=== PATIENT | male | born 1955 | race Caucasian/White ===

== ENCOUNTER 2017-11-12 09:37 | Emergency (ER) | payer OTHER ==
[~2017-11-12] VITALS: Ht 167.6 cm; Wt 86.2 kg
[~2017-11-12 09:37] MED LIST: AMLO10 PO; Bactrim Ds Tab1 EACH PO; CEPH500 PO; CLIN300 PO; CLON.5; CLON1 PO; Cleocin HCl300 MG PO; DIAZ5 PO; FURO20 PO; HYDACE5 PO; HYDCHL25 PO; HYDPAM50 PO; LISI20 PO; Lasix20 MG PO; Lotrimin Ultra12 GM EXT; METPRE4DP PO; NAPR500 PO; NITR.4SL SL; NITR100CA PO; Norco 10-325 T1 EACH PO; OXYACE5T PO; OXYC10TA19 PO; PHENY100ER; PHENY100ER PO; POTCHL20ER PO; Percocet 5-3251 EACH PO; Roxicodone15 MG PO; SPIR25 PO; Silvadene20 GM TOP; TRAM50 PO; WATER PILL
[2017-11-12] MEDS ORDERED: CEPH500 PO (10:03)
[2017-11-12] MEDS ORDERED: BUME2 PO (10:03)
[2017-11-12] MEDS ORDERED: Prinivil10 MG PO (10:09)
[2017-11-12] MEDS ORDERED: PHENY100ER PO (10:10)
== END 2017-11-12 10:53 | disposition home or self-care (01) ==
LOC: ER 09:37
DX: L03.116 Cellulitis of left lower limb (principal); R60.0 Localized edema; Z91.19 Patient's noncompliance with other medical treatment and regimen; Z88.0 Allergy status to penicillin; Z88.8 Allergy status to other drugs, medicaments and biological substances; Z79.899 Other long term (current) drug therapy; Z79.891 Long term (current) use of opiate analgesic; F17.200 Nicotine dependence, unspecified, uncomplicated
CPT/HCPCS: 99282

== ENCOUNTER 2018-08-20 10:44 | Day surgery (SDC) | payer OTHER ==
[~2018-08-20 10:44] MED LIST changes: +BUME2 PO; +Prinivil10 MG PO
== END 2018-08-20 22:39 | disposition home or self-care (01) ==
LOC: WOUND 10:44
DX: S81.802A Unspecified open wound, left lower leg, initial encounter (principal); I89.0 Lymphedema, not elsewhere classified; Z86.19 Personal history of other infectious and parasitic diseases
CPT/HCPCS: G0463

== ENCOUNTER 2018-10-28 16:29 | Emergency (ER) | payer OTHER ==
[~2018-10-28] VITALS: Ht 167.6 cm; Wt 93.0 kg
[2018-10-28] MEDS ORDERED: MINO50 PO (20:00)
[2018-10-28] MEDS ORDERED: Percocet 5-3251 EACH PO (20:00)
== END 2018-10-28 20:07 | disposition home or self-care (01) ==
LOC: ER 16:29
DX: S22.41XA Multiple fractures of ribs, right side, initial encounter for closed fracture (principal); S00.81XA Abrasion of other part of head, initial encounter; S80.812A Abrasion, left lower leg, initial encounter; I87.2 Venous insufficiency (chronic) (peripheral); I89.0 Lymphedema, not elsewhere classified; Y04.8XXA Assault by other bodily force, initial encounter; Z88.0 Allergy status to penicillin; Z88.8 Allergy status to other drugs, medicaments and biological substances; Z79.899 Other long term (current) drug therapy; G40.909 Epilepsy, unspecified, not intractable, without status epilepticus; F17.210 Nicotine dependence, cigarettes, uncomplicated
CPT/HCPCS: 71101; 99283-25

== ENCOUNTER 2018-10-31 10:04 | Emergency (ER) | payer OTHER ==
[~2018-10-31] VITALS: Ht 167.6 cm; Wt 101.2 kg
[~2018-10-31 10:04] MED LIST changes: +MINO50 PO
== END 2018-10-31 11:25 | disposition home or self-care (01) ==
LOC: ER 10:04
DX: S22.41XA Multiple fractures of ribs, right side, initial encounter for closed fracture (principal); F17.210 Nicotine dependence, cigarettes, uncomplicated; G40.909 Epilepsy, unspecified, not intractable, without status epilepticus; Z98.890 Other specified postprocedural states; Y09 Assault by unspecified means
CPT/HCPCS: 99283

== ENCOUNTER → 2018-11-11 | Outpatient (CLI) | payer OTHER | END | disposition home or self-care (01) | LOC: LAB SRC 08:25 → LAB SHORT 08:25 | DX: G89.4 Chronic pain syndrome (principal); Z79.899 Other long term (current) drug therapy | CPT/HCPCS: G0480 ==

== ENCOUNTER → 2018-12-14 | Outpatient (CLI) | payer OTHER | END | disposition home or self-care (01) | LOC: LAB SRC 09:45 → LAB SHORT 09:45 | DX: I89.0 Lymphedema, not elsewhere classified (principal) | CPT/HCPCS: 87070; 87075; 87205 ==

== ENCOUNTER 2019-03-31 16:25 | Emergency (ER) | payer OTHER ==
[~2019-03-31] VITALS: Ht 170.2 cm; Wt 90.7 kg
[2019-03-31 17:34] LABS: BASOPHILS PERCENT AUTO 1 % (0-2); EOSINOPHILS ABSOLUTE AUTO 0.19 K/mm3 (0.00-0.68); EOSINOPHILS PERCENT AUTO 2 % (0-6); Hematocrit 46.8 % (37.0-53.0); Hemoglobin 15.6 g/dL (13.5-17.5); IMMATURE GRAN ABSOLUTE AUTO 0.02 K/mm3 (0.00-0.10); IMMATURE GRAN PERCENT AUTO 0 % (0-1); LYMPHOCYTES ABSOLUTE AUTO 3.92 K/mm3 (0.84-5.20); LYMPHOCYTES PERCENT AUTO 47 % (21-46); MONOCYTES PERCENT AUTO 7 % (4-13); Mean Corpuscular HGB 30.5 pg (26.0-34.0); Mean Corpuscular HGB Conc 33.3 g/dL (31.5-36.5); Mean Corpuscular Volume 91 fL (80-100); Mean Platelet Volume 10.7 fL (9.1-12.4); NEUTROPHILS ABSOLUTE AUTO 3.51 K/mm3 (1.96-9.15); NEUTROPHILS PERCENT AUTO 42 % (41-73); Platelet Count 235 K/mm3 (150-400); RDW Coefficient Variation 11.9 % (11.7-14.2); RDW Standard Deviation 40.2 fL (35.1-46.3); Red Blood Cell Count 5.12 M/mm3 (4.30-5.90); White Blood Cell Count 8.34 K/mm3 (4.00-11.30)
[2019-03-31 17:54] LABS: Alanine Aminotransfer (ALT/SGP 56 U/L (12-78); Albumin, Blood 3.6 g/dL (3.4-5.0); Albumin/Globulin Ratio 0.9 (0.8-1.8); Alk Phos 156 U/L (50-136); Anion Gap 6 mmol/L (6-16); Aspartate Aminotrans (AST/SGOT 34 U/L (12-37); Bilirubin, Total 0.2 mg/dL (0.1-1.0); Blood Urea Nitrogen 13 mg/dL (8-24); Bun/Creatinine Ratio 15.9 (12.0-20.0); CO2, Blood 26 mmol/L (21-32); Calcium, Blood 8.9 mg/dL (8.5-10.1); Chloride, Blood 108 mmol/L (98-108); Creatinine, Blood 0.82 mg/dL (0.60-1.20); Globulin, Blood 3.9 g/dL (2.2-4.0); Glomerular Filtration Rate >60 (60-); Glucose, Blood 101 mg/dL (70-99); Potassium, Blood 4.2 mmol/L (3.5-5.5); Sodium, Blood 140 mmol/L (136-145); Total Protein, Blood 7.5 g/dL (6.4-8.2); Troponin I <0.015 ng/mL (0.000-0.040)
== END 2019-03-31 19:00 | disposition home or self-care (01) ==
LOC: ER 16:25
PROVIDERS: Physician Assistant
DX: R07.89 Other chest pain (principal); Z88.0 Allergy status to penicillin; Z88.6 Allergy status to analgesic agent; Z79.899 Other long term (current) drug therapy; F17.210 Nicotine dependence, cigarettes, uncomplicated
CPT/HCPCS: 36415; 71046; 80053; 84484; 85025; 93005; 93010; 99285-25

== ENCOUNTER 2019-08-27 08:43 | Emergency (ER) | payer OTHER ==
[~2019-08-27] VITALS: Ht 170.2 cm; Wt 90.7 kg
[2019-08-27] MEDS ORDERED: Klonopin1 MG PO (09:05)
== END 2019-08-27 09:11 | disposition home or self-care (01) ==
LOC: ER 08:43
DX: Z76.0 Encounter for issue of repeat prescription (principal); F17.210 Nicotine dependence, cigarettes, uncomplicated; Z88.0 Allergy status to penicillin; Z88.8 Allergy status to other drugs, medicaments and biological substances; Z79.899 Other long term (current) drug therapy
CPT/HCPCS: 99281

== ENCOUNTER 2019-10-22 10:59 | Emergency (ER) | payer OTHER ==
[~2019-10-22 10:59] MED LIST changes: +Klonopin1 MG PO
[2019-10-22] MEDS ORDERED: Klonopin1 MG PO (19:20)
== END 2019-10-22 12:01 | disposition left against medical advice (07) ==
LOC: ER 10:59
DX: Z53.21 Procedure and treatment not carried out due to patient leaving prior to being seen by health care provider (principal)

== ENCOUNTER 2019-10-22 18:06 | Emergency (ER) | payer OTHER ==
[~2019-10-22] VITALS: Ht 167.6 cm; Wt 85.7 kg
[2019-10-22] MEDS ORDERED: Klonopin1 MG PO (19:20)
== END 2019-10-22 19:26 | disposition home or self-care (01) ==
LOC: ER 18:06
DX: G40.909 Epilepsy, unspecified, not intractable, without status epilepticus (principal); Z76.0 Encounter for issue of repeat prescription; Z88.0 Allergy status to penicillin; Z88.6 Allergy status to analgesic agent; Z79.899 Other long term (current) drug therapy; F17.210 Nicotine dependence, cigarettes, uncomplicated
CPT/HCPCS: 99281

== ENCOUNTER 2020-01-14 11:39 | Emergency (ER) | payer OTHER ==
[~2020-01-14] VITALS: Ht 167.6 cm; Wt 86.2 kg
[2020-01-14] MEDS ORDERED: Klonopin1 MG PO (12:07)
== END 2020-01-14 12:20 | disposition home or self-care (01) ==
LOC: ER 11:39
DX: G40.909 Epilepsy, unspecified, not intractable, without status epilepticus (principal); Z76.0 Encounter for issue of repeat prescription; F17.210 Nicotine dependence, cigarettes, uncomplicated; Z88.0 Allergy status to penicillin; Z88.6 Allergy status to analgesic agent; Z79.899 Other long term (current) drug therapy
CPT/HCPCS: 99281

== ENCOUNTER 2020-11-24 11:21 | Emergency (ER) | payer OTHER ==
[~2020-11-24] VITALS: Ht 177.8 cm; Wt 104.3 kg
[2020-11-24] MEDS ORDERED: Klonopin1 MG PO (11:44)
[2020-11-24] MEDS ORDERED: Phenytoin Sodi100 MG PO (11:44)
== END 2020-11-24 12:17 | disposition home or self-care (01) ==
LOC: ER 11:21
DX: Z76.0 Encounter for issue of repeat prescription (principal); G40.909 Epilepsy, unspecified, not intractable, without status epilepticus; F41.9 Anxiety disorder, unspecified; F17.210 Nicotine dependence, cigarettes, uncomplicated; Z79.899 Other long term (current) drug therapy; Z98.1 Arthrodesis status
CPT/HCPCS: 99281; A9270

== ENCOUNTER 2020-11-29 08:15 | Emergency (ER) | payer OTHER ==
[~2020-11-29] VITALS: Ht 170.2 cm; Wt 90.7 kg
[~2020-11-29 08:15] MED LIST changes: +Phenytoin Sodi100 MG PO
[2020-11-29 09:13] LABS: BASOPHILS ABSOLUTE AUTO 0.06 K/mm3 (0.00-0.23); BASOPHILS PERCENT AUTO 1 % (0-2); EOSINOPHILS PERCENT AUTO 2 % (0-6); Hematocrit 52.1 % (37.0-53.0); Hemoglobin 17.7 g/dL (13.5-17.5); IMMATURE GRAN ABSOLUTE AUTO 0.03 K/mm3 (0.00-0.10); IMMATURE GRAN PERCENT AUTO 0 % (0-1); LYMPHOCYTES ABSOLUTE AUTO 3.15 K/mm3 (0.84-5.20); LYMPHOCYTES PERCENT AUTO 37 % (21-46); MONOCYTES ABSOLUTE AUTO 0.61 K/mm3 (0.16-1.47); MONOCYTES PERCENT AUTO 7 % (4-13); Mean Corpuscular HGB 31.1 pg (26.0-34.0); Mean Corpuscular Volume 92 fL (80-100); Mean Platelet Volume 9.7 fL (9.1-12.4); NEUTROPHILS ABSOLUTE AUTO 4.42 K/mm3 (1.96-9.15); NEUTROPHILS PERCENT AUTO 52 % (41-73); Platelet Count 257 K/mm3 (150-400); RDW Coefficient Variation 12.3 % (11.7-14.2); RDW Standard Deviation 41.8 fL (35.1-46.3); Red Blood Cell Count 5.69 M/mm3 (4.30-5.90); White Blood Cell Count 8.47 K/mm3 (4.00-11.30)
[2020-11-29 09:34] LABS: Alanine Aminotransfer (ALT/SGP 24 U/L (12-78); Albumin, Blood 3.8 g/dL (3.4-5.0); Albumin/Globulin Ratio 0.9 (0.8-1.8); Alk Phos 128 U/L (50-136); Anion Gap 9 mmol/L (6-16); Aspartate Aminotrans (AST/SGOT 17 U/L (12-37); Bilirubin, Total 0.4 mg/dL (0.1-1.0); Blood Urea Nitrogen 10 mg/dL (8-24); Bun/Creatinine Ratio 13.2 (12.0-20.0); CO2, Blood 25 mmol/L (21-32); Calcium, Blood 8.7 mg/dL (8.5-10.1); Chloride, Blood 104 mmol/L (98-108); Creatinine, Blood 0.76 mg/dL (0.60-1.20); Globulin, Blood 4.4 g/dL (2.2-4.0); Glomerular Filtration Rate >60 (60-); Glucose, Blood 117 mg/dL (70-99); Potassium, Blood 4.4 mmol/L (3.5-5.5); Sodium, Blood 138 mmol/L (136-145); Total Protein, Blood 8.2 g/dL (6.4-8.2)
== END 2020-11-29 09:11 | disposition left against medical advice (07) ==
LOC: ER 08:15
PROVIDERS: Physician Assistant
DX: G40.909 Epilepsy, unspecified, not intractable, without status epilepticus (principal); S09.90XA Unspecified injury of head, initial encounter; Z76.0 Encounter for issue of repeat prescription; G43.909 Migraine, unspecified, not intractable, without status migrainosus; Z53.20 Procedure and treatment not carried out because of patient's decision for unspecified reasons; F17.210 Nicotine dependence, cigarettes, uncomplicated; Z79.899 Other long term (current) drug therapy; W18.09XA Striking against other object with subsequent fall, initial encounter
CPT/HCPCS: 80053; 85025; 99284; A9270

== ENCOUNTER 2020-12-01 22:08 | Inpatient (IN) | payer OTHER ==
[~2020-12-01] VITALS: Ht 182.9 cm; Wt 107.7 kg
[2020-12-01 22:37] LABS: BASOPHILS ABSOLUTE AUTO 0.06 K/mm3 (0.00-0.23); BASOPHILS PERCENT AUTO 0 % (0-2); EOSINOPHILS ABSOLUTE AUTO 0.09 K/mm3 (0.00-0.68); EOSINOPHILS PERCENT AUTO 1 % (0-6); Hematocrit 53.3 % (37.0-53.0); Hemoglobin 17.9 g/dL (13.5-17.5); IMMATURE GRAN ABSOLUTE AUTO 0.07 K/mm3 (0.00-0.10); IMMATURE GRAN PERCENT AUTO 1 % (0-1); LYMPHOCYTES ABSOLUTE AUTO 1.58 K/mm3 (0.84-5.20); LYMPHOCYTES PERCENT AUTO 10 % (21-46); MONOCYTES ABSOLUTE AUTO 1.52 K/mm3 (0.16-1.47); MONOCYTES PERCENT AUTO 10 % (4-13); Mean Corpuscular HGB 30.4 pg (26.0-34.0); Mean Corpuscular HGB Conc 33.6 g/dL (31.5-36.5); Mean Corpuscular Volume 91 fL (80-100); Mean Platelet Volume 9.8 fL (9.1-12.4); NEUTROPHILS ABSOLUTE AUTO 11.93 K/mm3 (1.96-9.15); NEUTROPHILS PERCENT AUTO 78 % (41-73); Platelet Count 302 K/mm3 (150-400); RDW Coefficient Variation 12.3 % (11.7-14.2); RDW Standard Deviation 40.7 fL (35.1-46.3); Red Blood Cell Count 5.89 M/mm3 (4.30-5.90); White Blood Cell Count 15.25 K/mm3 (4.00-11.30)
[2020-12-01 23:02] LABS: Alanine Aminotransfer (ALT/SGP 27 U/L (12-78); Albumin, Blood 4.4 g/dL (3.4-5.0); Alk Phos 132 U/L (50-136); Anion Gap 7 mmol/L (6-16); Aspartate Aminotrans (AST/SGOT 24 U/L (12-37); Bilirubin, Total 0.6 mg/dL (0.1-1.0); Blood Urea Nitrogen 15 mg/dL (8-24); CO2, Blood 25 mmol/L (21-32); Calcium, Blood 9.4 mg/dL (8.5-10.1); Chloride, Blood 104 mmol/L (98-108); Creatinine, Blood 1.25 mg/dL (0.60-1.20); Ethanol (Alcohol), Blood, Med <3 mg/dL; Globulin, Blood 4.4 g/dL (2.2-4.0); Glomerular Filtration Rate >60 (60-); Glucose, Blood 128 mg/dL (70-99); Potassium, Blood 4.6 mmol/L (3.5-5.5); Sodium, Blood 136 mmol/L (136-145); Total Protein, Blood 8.8 g/dL (6.4-8.2); Troponin I 0.015 ng/mL (0.000-0.040)
[2020-12-01 23:08] LABS: Dilantin (Phenytoin), Total 49.1 ug/mL (10.0-20.0)
[2020-12-01] MEDS ORDERED: PHENYTOIN SODI100 MG PO (23:36)
[2020-12-01] MEDS ORDERED: LEVETIRACETAM PO (23:36)
[2020-12-02 00:27] LABS: Salicylate 3.2 mg/dL (2.8-20.0)
[2020-12-02 00:37] LABS: Acetaminophen, Random <2.0 ug/mL (10.0-30.0)
--- NOTE | 2020-12-02 01:55 | NUR ---
CALLED DR. KAYE. NOTIFIED HER PATIENT VERY CONFUSED, COULD NOT EVEN TELL US HIS NAME. HE IS PULLING OFF HIS TELE LEADS AND PULLING AT HIS IV. ORDERS RECEIVED FOR BILATERAL SOFT WRIST RESTRAINS. NOTIFIED HER POISON CONTROL RECOMMENDS TO CHECK DILANTIN LEVEL Q4H, DR. KAYE STATED TO PUT IN ORDERS. SHE STATED DO NOT STRAIGHT CATH TO OBTAIN URINE. ORDERS TO CHANGE ATIVAN FROM PRN SEIZURES TO PRN AGITATION.
--- NOTE | 2020-12-02 02:05 | NUR ---
INITIAL ASSESSMENT: PATIENT ARRIVED TO ROOM VIA ED GURNEY. SLID HIM TO ICU BED VIA SLIDER SHEET. UNABLE TO ANSWER ANY ORIENTATION QUESTIONS. HAS GARBLED SPEECH. SAYS "WHY AM I HERE" AND WHEN WE ANSWER, HE REPEATS QUESTIONS. PUPILS EQUAL BILATERALLY. HE DOES NOT FOLLOW COMMANDS TO SQUEEZE HANDS OR MOVE HIS EXTREMITIES. IT IS NOTED THAT HE IS ABLE TO MOVE ALL OF HIS EXTREMITIES. HE WAS WEARING DIRTY OVERALLS WHICH WE REMOVED, BECAME VERY ANGRY ABOUT THAT AND WANTED THEM TO LAY IN HIS BED. REFUSED TO TAKE OFF HIS SHIRT. PULLING AT HIS TELE LINES AND IV, SOFT BILATERAL WRIST RESTRAINTS PLACED PER MD ORDER. ON ROOM AIR. TELE SHOWS SINUS RHYTHM. MULTIPLE SCARS TO ABDOMEN AND CHEST. ABRASIONS NOTED TO BOTH KNEES. SCABS NOTED TO PATIENT'S LEFT THIGH. PATIENT VERY WEAK, TRIES TO SIT UP TO GET OUT OF BED BUT HE IS UNABLE. WALLET AND ITS CONTENTS PLACED IN SAFE WITH SECURITY. COINS, PACK OF CIGARETTES, PROPOSAL MANAGER, AND POCKET KNIFE LOCKED IN PATIENT'S DRAWER (C WPF DEVELOPER STATES KNIFE CAN STAY IN ROOM LONG IT IS LOCKED). BED ALARM ON FOR SAFETY. CALL LIGHT IN REACH.
--- NOTE | 2020-12-02 02:09 | NUR ---
POISON CONTROL RECEIVED CALL FROM POISON CONTROL, REVIEWED LABS AND VS WITH POISON CONTROL. REPEAT SALICYLATE LEVEL WITH NEXT LAB DRAW PER POISON CONTROL.
[2020-12-02] MEDS ORDERED: NITROGLYCERIN0.4 M3 PO (02:19)
[2020-12-02] MEDS ORDERED: OXYC10TA19 PO (02:19)
[2020-12-02] MEDS ORDERED: LOSA50 PO (02:20)
[2020-12-02] MEDS ORDERED: ERYT.5TO TOP (02:21)
[2020-12-02] MEDS ORDERED: IPRAT-ALBUT 0.5-3 ML INH (02:21)
[2020-12-02] MEDS ORDERED: CLONAZEPAM1 MG PO (02:22)
[2020-12-02 02:49] LABS: BASOPHILS ABSOLUTE AUTO 0.06 K/mm3 (0.00-0.23); BASOPHILS PERCENT AUTO 1 % (0-2); EOSINOPHILS ABSOLUTE AUTO 0.14 K/mm3 (0.00-0.68); EOSINOPHILS PERCENT AUTO 1 % (0-6); Hematocrit 50.9 % (37.0-53.0); Hemoglobin 16.6 g/dL (13.5-17.5); IMMATURE GRAN ABSOLUTE AUTO 0.06 K/mm3 (0.00-0.10); IMMATURE GRAN PERCENT AUTO 1 % (0-1); LYMPHOCYTES ABSOLUTE AUTO 2.73 K/mm3 (0.84-5.20); LYMPHOCYTES PERCENT AUTO 22 % (21-46); MONOCYTES PERCENT AUTO 10 % (4-13); Mean Corpuscular HGB 29.7 pg (26.0-34.0); Mean Corpuscular HGB Conc 32.6 g/dL (31.5-36.5); Mean Corpuscular Volume 91 fL (80-100); Mean Platelet Volume 9.9 fL (9.1-12.4); NEUTROPHILS ABSOLUTE AUTO 8.34 K/mm3 (1.96-9.15); NEUTROPHILS PERCENT AUTO 66 % (41-73); Platelet Count 270 K/mm3 (150-400); RDW Coefficient Variation 12.4 % (11.7-14.2); RDW Standard Deviation 41.9 fL (35.1-46.3); Red Blood Cell Count 5.58 M/mm3 (4.30-5.90); White Blood Cell Count 12.63 K/mm3 (4.00-11.30)
[2020-12-02 02:56] LABS: Anion Gap 6 mmol/L (6-16); Blood Urea Nitrogen 14 mg/dL (8-24); CO2, Blood 25 mmol/L (21-32); Calcium, Blood 8.9 mg/dL (8.5-10.1); Chloride, Blood 107 mmol/L (98-108); Glomerular Filtration Rate >60 (60-); Glucose, Blood 130 mg/dL (70-99); Potassium, Blood 4.2 mmol/L (3.5-5.5); Sodium, Blood 138 mmol/L (136-145)
[2020-12-02 03:07] LABS: Salicylate 3.5 mg/dL (2.8-20.0)
[2020-12-02 03:10] LABS: Dilantin (Phenytoin), Total 45.8 ug/mL (10.0-20.0)
--- NOTE | 2020-12-02 05:20 | NUR ---
PATIENT BECOMING MORE CALM AND LESS AGITATED. RESPONDS TO VERBAL BUT IS ORIENTED X0. STARTING TO FOLLOW SOME DIRECTIONS SUCH LIFT YOUR ARM BUT DOES NOT FOLLOW THEM CONSISTENTLY. CONTINUES TO PULL AT LINES/TUBES. HE DID SMILE AT ME ONCE AND SAID WE WERE "SPOILING HIM" WHEN WE WASHED HIS HAIR. ABLE TO COMPLETE PARTIAL BED BATH, ORAL CARE WITH SUCTION SWAB, REPOSITION, AND TAKE MORE PICTURES OF ABRASIONS/BRUISES. PATIENT'S ARMS ARE VERY PAINFUL WITH REPOSITIONING. CALL LIGHT IN REACH, BED ALARM ON.
--- NOTE | 2020-12-02 05:58 | NUR ---
POISON CONTROL CALLED. PATIENT'S SALICYLATE LEVEL INCREASED FROM 3.2 TO 3.5 SO THEY RECOMMEND DRAWING A SALICYLATE LEVEL Q2H UNTIL IT PEAKS AND THEN REDUCES BY 20%. NOTIFIED DR. KAYE, SHE STATED TO PUT IN LAB ORDERS. NOTIFIED HER PATIENT HAS NOT YET VOIDED, BLADDERN SCAN SHOWED 248, SHE ORDERED BLADDER SCANS PRN.
--- NOTE | 2020-12-02 06:40 | NUR ---
PATIENT VOIDED IN CLEAN URINAL, ORDERS RECEIVED FOR URINALYSIS CULTURE AND SENSITIVITY IF INDICATED AND URINE TOXICOLOGY SCREEN.
[2020-12-02 06:47] LABS: Source, Urine Catheter
[2020-12-02 06:50] LABS: Appearance, Urine Clear (Clear); Bilirubin, Urine Neg (Neg); Blood, Urine 4+ (Neg); Color, Urine Yellow (P-Yellow); Glucose Qualitative, Urine Neg (Neg); Ketones, Urine 2+ (Neg); Leukocyte Esterase, Urine Neg (Neg); Nitrite, Urine Neg (Neg); Protein, Urine 3+ (Neg); Specific Gravity, Urine 1.015 (1.003-1.022); Urobilinogen, Urine NORM (Normal)
--- NOTE | 2020-12-02 07:00 | NUR ---
ASSUMED CARE- PT RESTING IN BED. VSS, BILATERAL WRIST RESTAINTS IN PLACE. PT MUMBLES AND SLURRS SPEECH WHEN ATEMPTING TO WAKE HIM UP. ORIENTED TO HIMSELF BUT NOT TIME, PLACE OR SITUATION. VSS AT THIS TIME, WILL CONTINUE TO MONITOR
[2020-12-02 07:04] LABS: U Amphetamine Screen Not Detected
[2020-12-02 07:05] LABS: U Barbituate Screen DETECTED; U Benzodiazapine Screen DETECTED; U Buprenorphine Screen Not Detected; U Cannabinoids Screen Not Detected; U Cocaine Screen Not Detected; U Methadone Screen Not Detected; U Methamphetamine Screen Not Detected; U Opiates Screen Not Detected; U Oxycodone Screen Not Detected; U Phencyclidine Screen Not Detected; U Propoxyphene Screen Not Detected
[2020-12-02 07:13] LABS: Bacteria Mod /hpf; Squamous Epithelial Cells Rare /hpf (Few)
--- NOTE | 2020-12-02 07:29 | NUR ---
SHIFT SUMMARY: PATIENT RESPONDS TO VERBAL BUT IS ORIENTED X0. HE WAS VERY AGITATED UPON ARRIVAL TO ROOM BUT IS NOW ABLE TO BE REDIRECTED AT TIMES. HE HAS BEEN ABLE TO SLEEP AT TIMES. GARBLED SPEECH, HAS ONLY SPOKEN A FEW SENTENCES THAT MAKE SENSE. DOES NOT FOLLOW DIRECTIONS WELL. BILATERAL UPPER ARMS ARE PAINFUL WHEN YOU MOVE THEM. ON ROOM AIR. SINUS RHYTHM ON TELE. BILATERAL SOFT WRIST RESTRAINTS IN PLACE PATIENT WAS PULLING ON LINES/TUBES. HAVE NOT ATTEMPTED TO HAVE THE PATIENT SWALLOW HE DOES NOT FOLLOW DIRECTIONS WELL. ORAL CARE PROVIDED. PATIENT VOIDED IN URINAL AND LABS SENT. REPOSITIONED Q2H. HE COOPERATED WITH PARTIAL BEDBATH. PICTURES TAKEN OF MULTIPLE ABRASIONS AND BRUISES THROUGHOUT BODY. LABS BEING DRAWN PER POISON CONTROL'S RECOMMENDATION. MED REC COMPLETED BASED ON PATIENT'S PRESCRIPTION HISTORY. REPORT GIVEN TO ONCOMING RN.
--- NOTE | 2020-12-02 10:23 | NUR ---
PT YELLING ABOUT THE DOCTOR SAYING HE COULD GO HOME. WENT IN TO TALK TO THE PATIENT AND EXPLAIN THAT I HAD JUST SPOKEN TO HIS DOCTOR AND HE WAS NOT GOING HOME BECAUSE OF HIS DILATIN LEVEL BEING TO HIGH. PT CONTINUES TO YELL AND SCREAM. HE CONTINUES TO CURSE AT THE NURSES, BEING EXTREMELY DISRESPECTFUL AND RUDE. TELLING ALL OF US TO GET THE "F" OUT OF HIS ROOM. PATIENT IS NOT REDIRECTABLE NOR RE-ORIENTABLE. PATIENT CONTINUES TO TRY TO SPIT ON THE NURSES
[2020-12-02 12:02] LABS: Dilantin (Phenytoin), Total 37.8 ug/mL (10.0-20.0)
[2020-12-02 15:29] LABS: Dilantin (Phenytoin), Total 49.3 ug/mL (10.0-20.0)
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
--- NOTE | 2020-12-02 19:30 | NUR ---
LYING IN SEMI FOWLERS WITH EYES OPEN. HE IS BELIGERANT, CURSING AT NURSING, PULLING ON HIS RESTRAINTS WHILE DEMANDING TO BE RELEASED. NURSING OFFERED FLUIFD, FOOD, REPOSITIONING, AND URINAL, PT REFUSED ALL OFFERS WHILE YELLING OUT, "ALL I WANT IS SCISSORS TO CUT THIS SHIT LOOSE!" MEDICATED WITH ATIVAN PER MD ORDERS. NURSING REITERATED THAT ROUNDS WOULD BE KARLEY TO ASK AGAIN FOR PERSONAL NEEDS WITHIN THE HOUR. PT CONTINUED TO YELL OUT, "GET OUT OF HERE, GET THE FUCK OUT OF HERE." SAFETY MEASURES IN PLACE. WILL CONTINUE TO MONITOR.
[2020-12-02 20:00] LABS: Dilantin (Phenytoin), Total 47.6 ug/mL (10.0-20.0)
--- NOTE | 2020-12-02 20:00 | NUR ---
SPOKE TO STEVE WITH POISON CONTROL CENTER AND GAVE UPDATED ASA AND DILANTIN LEVELS. SHE INSTRUCED NURING TO CONTINUE CHECKING LEVELS UNTIL ASA LEVELS ARE BELOW 2.8 AND DILANTIN LEVELS ARE TRENDING DOWN. LAB ORDERS ENTERED INTO COMPUTER CONTINUING THROUGH 6AM. SAFETY MEASURES IN PLACE. WILL CONTINUE TO MONITOR.
--- NOTE | 2020-12-02 21:15 | NUR ---
NURSING ENTERED ROOM AFTER PT BEGAN TO CALL OUT FOR HIS MOM. NURSING ATTEMPTED TO REORIENT PT UNSUCCESSFULLY SEVERAL TIMES. HE CONTINUES TO BELIEVE THAT HIS MOM IS IN THE BED NEXT TO HIM. HE IS ESCALATING SHE DOES NOT RESPOND TO HIM. SAFETY MEASURES IN PLACE. WILL CONTINUE TO MONITOR.
--- NOTE | 2020-12-02 21:45 | NUR ---
HALDOL 2MG GIVEN IM PER MD ORDERS D/T CONTINUED ESCALATION OF CONFUSION, BEING MORE COMBATIVE, AND YELLING. SAFETY MEAURES IN PLACE. WILL CONTINUE TO MONITOR.
[2020-12-02 22:54] LABS: Salicylate 3.2 mg/dL (2.8-20.0)
[2020-12-02 22:57] LABS: Dilantin (Phenytoin), Total 46.6 ug/mL (10.0-20.0)
--- NOTE | 2020-12-02 23:24 | NUR ---
18G POWERFLIDE PLACED WITH ULTRASOUND GUIDANCE, FLUSHES WITH EASE AND GOOD BLOOD RETURN NOTED. IVF OF NS AT 100ML/HR RESTARTED PER MD ORDERS, INFUSING WITHOUT DIFFICULTY. GIVE A PRN DOSE OF ATIVAN IVP PER MD ORDERS. PT HAS CURRENTLY STOPPED YELLING OUT. NURSING ABLE TO DO ORAL CARE, AND PT DRANK 4OZ WATER. DENIES FURTHER NEEDS OR WANTS AT THIS TIME. SAFETY MEASURES IN PLACE. WILL CONTINUE TO MONITOR.
--- NOTE | 2020-12-03 00:10 | NUR ---
RESTING WITH EYES OPEN AND MOANS OCCASIONALLY. DENIES PAIN OR DISCOMFORT, BUT CONTINUES TO ASK FOR RESTRAINTS TO BE REMOVED SINCE PEOPLE ARE TRYING TO MOVE INTO HIS HOME WHILE HE HOLDS THE TITLE. NURSING ATTEMPTED TO REORIENTED HIM AGIAN. HE DRANK WATER, CONSUMED A YOGURT, AND PART OF A CHOCOLATE PROTIEN SHAKE. LABS DRAWN FROM POWERGLIDE TO RIGHT UPPER ARM. DENIES OFFERS TO REPOSITION AND USE OF URINAL, STATES THAT HE IS FINE. DENIES FURTHER NEEDS OR WANTS AT THIS TIME.
[2020-12-03 02:35] LABS: Salicylate 3.1 mg/dL (2.8-20.0)
[2020-12-03 02:38] LABS: Dilantin (Phenytoin), Total 43.4 ug/mL (10.0-20.0)
--- NOTE | 2020-12-03 02:40 | NUR ---
LYING IN SEMI FOWLERS WITH EYES CLOSED. CONTINUES TO CALL OUT, BUT NOW FOR USE OF URINAL. 225NL OUTPUT NOTED. ACCEPTED FLUIDS OFFERED, BUT REFUSED NUTRITION. REPOSITIONED FOR COMFORT. DENIES FURTHER NEEDS OR WANTS AT THIS TIME. SAFETY MEASURES IN PLACE. WILL CONTINUE TO MONITOR.
--- NOTE | 2020-12-03 03:14 | NUR ---
LYING IN SEMI FOWLERS WITH EYES CLOSED. CONTINUES TO CALL OUT FOR SOME ONE TO HELP HIM BUT HAS CALMED DOWN SOME. ACCEPTED FLUIDS OFFERED, BUT REFUSED NUTRITION. REPOSITIONED FOR COMFORT. DENIES FURTHER NEEDS OR WANTS AT THIS TIME. SAFETY MEASURES IN PLACE. WILL CONTINUE TO MONITOR.
[2020-12-03 04:13] LABS: BASOPHILS ABSOLUTE AUTO 0.05 K/mm3 (0.00-0.23); BASOPHILS PERCENT AUTO 1 % (0-2); EOSINOPHILS ABSOLUTE AUTO 0.04 K/mm3 (0.00-0.68); EOSINOPHILS PERCENT AUTO 0 % (0-6); Hematocrit 46.6 % (37.0-53.0); Hemoglobin 15.4 g/dL (13.5-17.5); IMMATURE GRAN ABSOLUTE AUTO 0.03 K/mm3 (0.00-0.10); IMMATURE GRAN PERCENT AUTO 0 % (0-1); LYMPHOCYTES ABSOLUTE AUTO 2.43 K/mm3 (0.84-5.20); LYMPHOCYTES PERCENT AUTO 24 % (21-46); MONOCYTES ABSOLUTE AUTO 1.02 K/mm3 (0.16-1.47); MONOCYTES PERCENT AUTO 10 % (4-13); Mean Corpuscular Volume 91 fL (80-100); Mean Platelet Volume 9.8 fL (9.1-12.4); NEUTROPHILS ABSOLUTE AUTO 6.53 K/mm3 (1.96-9.15); NEUTROPHILS PERCENT AUTO 65 % (41-73); Platelet Count 214 K/mm3 (150-400); RDW Coefficient Variation 12.2 % (11.7-14.2); Red Blood Cell Count 5.13 M/mm3 (4.30-5.90)
--- NOTE | 2020-12-03 04:23 | NUR ---
LYING IN SEMI FOWLERS WITH EYES CLOSED. ACCEPTED FLUIDS OFFERED, BUT REFUSED NUTRITION. REPOSITIONED FOR COMFORT. LABS DRAWN FOR POWERGLIDE WITH EASE. DENIES FURTHER NEEDS OR WANTS AT THIS TIME. SAFETY MEASURES IN PLACE. WILL CONTINUE TO MONITOR.
[2020-12-03 04:29] LABS: Anion Gap 7 mmol/L (6-16); Blood Urea Nitrogen 13 mg/dL (8-24); Bun/Creatinine Ratio 17.9 (12.0-20.0); CO2, Blood 24 mmol/L (21-32); Calcium, Blood 8.2 mg/dL (8.5-10.1); Chloride, Blood 106 mmol/L (98-108); Creatinine, Blood 0.73 mg/dL (0.60-1.20); Glomerular Filtration Rate >60 (60-); Glucose, Blood 102 mg/dL (70-99); Potassium, Blood 3.7 mmol/L (3.5-5.5); Salicylate 3.3 mg/dL (2.8-20.0); Sodium, Blood 137 mmol/L (136-145)
--- NOTE | 2020-12-03 06:20 | NUR ---
SHIFT SUMMARY LYING IN SEMI FOWLERS WITH EYES CLOSED. STILL CONFUSED, BELIEVING THAT HE IS AT HOME, BUT A LITTLE MORE PLEASANT AT THIS TIME. ACCEPTED FLUIDS OFFERED, BUT REFUSED NUTRITION. REPOSITIONED FOR COMFORT. RIGHT UPPER ARM POWERGLIDE CONTINUES TO BE PATENT, 0600 LABS DRAWN AND SENT TO LAB. LAB ORDERS ENTERED INTO SYSTEM FOR THE NEXT 24HRS. NO FURTHER SIGNIFICANT CHANGES NOTED THIS SHIFT. DENIES FURTHER NEEDS OR WANTS AT THIS TIME. SAFETY MEASURES IN PLACE. WILL CONTINUE TO MONITOR.
[2020-12-03 06:47] LABS: Salicylate 2.7 mg/dL (2.8-20.0)
[2020-12-03 06:51] LABS: Dilantin (Phenytoin), Total 42.5 ug/mL (10.0-20.0)
--- NOTE | 2020-12-03 07:54 | NUR ---
ASSUMED CARE OF PT PT IS ALERT IN BED, YELLING OUT. ATTEMPT TO ASSIST PT, BUT PT CONTINUES TO YELL AT STAFF. ATTEMPTED TO OFFER PT BREAKFAST, UPON ATTEMPTING TO REPOSITION AND ELEVATE PT'S HOB FOR ASPIRATION PRECAUTIONS PT BECAME FURTHER AGITATED AND YELLED FOR STAFF TO "PUT MY HEAD DOWN". EXPLAINED TO PT THAT FOR SAFETY HE NEEDS TO BE SITTING UPRIGHT IN BED. PT DOESN'T CONSITANTLY ANSWER/RESPOND TO QUESTIONS FROM STAFF. WHILE ATTEMPTING TO PERFORM ASSESSMENT AND LOOK AT PT'S LEGS, HE WOULD KICK IS LEGS AWAY AND YELL "STOP FUCKING TOUCHING ME". INSTRUCTED PT ON SAFETY MEASURES AND NEED TO BE CALM TO HAVE RESTRAINTS REMOVED. ALSO INSTRUCTED PT ON WHY HE WAS IN THE HOSPITAL AND PLAN FOR THE DAY.
[2020-12-03 10:36] LABS: Salicylate 2.9 mg/dL (2.8-20.0)
[2020-12-03 10:39] LABS: Dilantin (Phenytoin), Total 36.9 ug/mL (10.0-20.0)
--- NOTE | 2020-12-03 11:05 | NUR ---
POISON CONTROL CALLED FOR UPDATE. CURRENT LAB MONITORING RECOMMENDATIONS IS STOP SALICYLATE LEVELS, CHANGE TO Q6 HOUR DILANTIN LEVELS AND ADD ALBUMIN LEVEL WITH NEXT DRAW, IF ELEVATED, MONITOR ALBUMIN WITH DILANTIN LEVELS. DISCUSSED RECOMMENDATIONS WITH DR REDMOND AND ORDERS RECEIVED TO CHANGE LABS.
--- NOTE | 2020-12-03 12:09 | NUR ---
REASSESSMENT PT IS ALERT, NOT AGITATED THIS MORNING. ATE PART OF MEAL WITH ASSITANCE. BP IMPROVING FROM THIS MORNING. PT IS ABLE TO EXPRESS NEEDS SUCH NEED TO USE THE URINAL OR HAVE A DRINK. PT STILL YELLS OUT AT TIMES AND STAFF NEED TO SPEAK VERY LOUD FOR PT TO HEAR THEM. PT STILL PULLS AT LINES/CORDS AT TIMES AND REMAINS IN RESTRAINTS. VITALS HAVE REMAINED STABLE.
--- NOTE | 2020-12-03 15:14 | NUR ---
PT HAS BEEN MORE COOPERATIVE THIS AFTERNOON. RESTRAINTS D/C'D AT 1400. PT IS VERY [place] AND ONLY ANSWERS SOME QUESTIONS. IVF REMAIN INFUSING TO [facility] POWERGLIDE AND NEXT LAB DRAW IS AT 1600.
--- NOTE | 2020-12-03 16:25 | NUR ---
TRANSFER OF CARE REPORT GIVEN TO SHAHEED BENÍTEZ IN PCU. PT TRANSFERED TO ROOM PCU 8 VIA BED. BELONGINGS GATHERED AND TRANSFERED WITH PT.
[2020-12-03 16:49] LABS: Albumin, Blood 3.4 g/dL (3.4-5.0); Dilantin (Phenytoin), Total 36.9 ug/mL (10.0-20.0)
--- NOTE | 2020-12-03 17:43 | NUR ---
SUMMARY PT HAS BEEN COOPERATE WITH CARE SINCE TRANSFERING FROM [facility]. HE IS ALERT, ORIENTED TO SELF, FAMILY & PLACE. SIEZURE PADS ARE IN PLACE, BED ALARM IS ON FOR SAFETY. PT ENC TO CALL FOR ASSISTANCE ORN, CALL LIGHT IN REACH. VSS, DYSPNEA NOTED ON EXERTION, SPO2 >95% ON RA, PT DENIES SOB/CP/PRESSURE. PHYSICAL THERAPY IN THIS AFTERNOON TO ASSESS PT. PT IS A 2 PERSON MAX ASSIST AT THIS TIME, FEEDING ASSIST, PT C/O PAIN IN HANDS & ARMS. MULTIPLE SCABS/BRUISES NOTED ON SKIN. PT YELLS OUT FOR HELP, CALL LIGHT REINFORCED PRN. WCTM & REPORT TO NOC RN
--- NOTE | 2020-12-03 22:20 | NUR ---
CALL FROM POISON CONTROL SPOKE AT LENGTH WITH CLARENCE FROM [facility] AND PROVIDED UPDATE ON SALICYLATE LEVEL. RECOMMENDATIONS INCLUDE ATTEMPTING ADMINISTRATION OF ACTIVATED CHARCOAL IF PT IS MORE COOPERATIVE, MONITORING PHENYTOIN LEVELS EVERY MORNING FOR 3 DAYS. EXPECTATION IS THAT PHENYTOIN WILL CLEAR WITH TIME SINCE LIVER AND KIDNEY FUNCTION APPEARS ADEQUATE BUT THAT NYSTAGMUS AND ATAXIA MAY PRESENT UNTIL LEVELS ARE LOWER. DR. RODRÍGUEZ AT [facility] IS AVAILABLE FOR FURTHER QUESTIONS OR CONCERNS. COMUNICATED TO DR. MORRIS AND LATOSHA IN PHARMACY WELL PRIMARY RN JR Chirinos. ORDERS RECEIVED AND ENTERED, WILL CONTINUE TO MONITOR CLOSELY.
[2020-12-04 05:37] LABS: BASOPHILS ABSOLUTE AUTO 0.06 K/mm3 (0.00-0.23); BASOPHILS PERCENT AUTO 1 % (0-2); EOSINOPHILS ABSOLUTE AUTO 0.12 K/mm3 (0.00-0.68); EOSINOPHILS PERCENT AUTO 1 % (0-6); Hematocrit 44.4 % (37.0-53.0); Hemoglobin 15.2 g/dL (13.5-17.5); IMMATURE GRAN ABSOLUTE AUTO 0.03 K/mm3 (0.00-0.10); IMMATURE GRAN PERCENT AUTO 0 % (0-1); LYMPHOCYTES ABSOLUTE AUTO 2.49 K/mm3 (0.84-5.20); LYMPHOCYTES PERCENT AUTO 27 % (21-46); MONOCYTES ABSOLUTE AUTO 0.92 K/mm3 (0.16-1.47); MONOCYTES PERCENT AUTO 10 % (4-13); Mean Corpuscular HGB Conc 34.2 g/dL (31.5-36.5); Mean Corpuscular Volume 90 fL (80-100); NEUTROPHILS ABSOLUTE AUTO 5.47 K/mm3 (1.96-9.15); NEUTROPHILS PERCENT AUTO 60 % (41-73); Platelet Count 201 K/mm3 (150-400); RDW Standard Deviation 39.8 fL (35.1-46.3); Red Blood Cell Count 4.91 M/mm3 (4.30-5.90); White Blood Cell Count 9.09 K/mm3 (4.00-11.30)
[2020-12-04 06:04] LABS: Anion Gap 8 mmol/L (6-16); Blood Urea Nitrogen 13 mg/dL (8-24); Bun/Creatinine Ratio 18.5 (12.0-20.0); CO2, Blood 24 mmol/L (21-32); Calcium, Blood 8.3 mg/dL (8.5-10.1); Chloride, Blood 106 mmol/L (98-108); Glomerular Filtration Rate >60 (60-); Glucose, Blood 87 mg/dL (70-99); Potassium, Blood 3.8 mmol/L (3.5-5.5); Sodium, Blood 138 mmol/L (136-145)
[2020-12-04 06:16] LABS: Dilantin (Phenytoin), Total 38.3 ug/mL (10.0-20.0)
--- NOTE | 2020-12-04 08:22 | NUR ---
SHIFT SUMMARY PT FREQUENTLY GOES FROM LETHARGIC TO COMBATIVE AND BACK AGAIN; AGGRESSIVE TOWARDS STAFF AT TIMES, CURSING AND ACCUSING STAFF OF BREAKING INTO HIS HOUSE AND STEALING ITEMS; PT REORIENTED FREQUENTLY; NOTIFIED AND CONSULTED, WELL PHARMACIST AND POISON CONTROL; VSS; LABETALOL ADMINISTERED 1X THIS SHIFT FOR ELEVATED BP; PT REFUSING VITALS AT TIMES; PT ROLLS AND DISROBES FREQUENTLY; INCONTINENT, W/ OCCASIONAL URINAL USE W/ ASSISTANCE; CURRENTLY YELLING OUT AT STAFF; CALL LIGHT IN REACH; BED IN LOWEST POSITION; BED ALARM AND CAMERA ON FOR SAFETY MEASURES; REPORT GIVEN TO DAY SHIFT RN.
--- NOTE | 2020-12-04 17:08 | NUR ---
SHIFT SUMMARY: PT WITH EPISODES OF ALERTNESS AND AGITATION, THEN LETHARGY. PT MORE ALERT AND AGITATED THIS AM, THEN NAPPING MOST OF AFTERNOON. PT REFUSING CARE AT TIMES THAT INCLUDE TELEMETRY PLACEMENT, OBTAINING VS, TAKING MEDICATIONS. PT STATING AT TIMES "I HAVE THE RIGHT TO REFUSE". GARBLED SPEECH CONTINUES, PT ANSWERS ASSESSMENT QUESTIONS INCONSISTENTLY, AT TIMES TALKING ABOUT HIS WALLET MISSING AND THE FOOD HE ORDERED. RESPIRATIONS EVEN AND UNLABORED, PT MAINTAINING O2 SATS >90% ON RA. HRR. HEALING SCABS/BRUISING NOTED TO BILATERAL KNEES, FOREHEAD, RT EYE. ATTENDS IN PLACE, PT INCONSISTENT WITH URINAL USE. PT'S FAMILY IN TO VISIT AND MEET WITH DR VASQUES. POISON CONTROL UPDATED VIA TELEPHONE TODAY. PT RECEIVING IVF INFUSION W/OUT DIFFICULTY. AT THIS TIME PT IS RESTING QUIETLY IN ROOM WITH EYES CLOSED, BED IN LOW POSITION, VIDEO MONITORING CONTINUES FOR SAFETY, CALL LIGHT WITHIN REACH. WILL CONTINUE TO MONITOR AND TREAT ACCORDINGLY UNTIL CHANGE OF SHIFT.
--- NOTE | 2020-12-04 23:04 | NUR ---
PHYSICIAN CONTACT PT C/O ACUTE SUBSTERNAL CHEST PAIN AND REQUESTING NITRO. SPECIAL EDUCATION PRESCHOOL TEACHER PROVIDER NOTIFIED, ORDERS FOR 12 LEAD, TROPONIN, AND NITRO ORDERED
[2020-12-05 04:54] LABS: Anion Gap 9 mmol/L (6-16); Blood Urea Nitrogen 11 mg/dL (8-24); Bun/Creatinine Ratio 16.9 (12.0-20.0); CO2, Blood 22 mmol/L (21-32); Calcium, Blood 8.6 mg/dL (8.5-10.1); Chloride, Blood 108 mmol/L (98-108); Creatinine, Blood 0.65 mg/dL (0.60-1.20); Glomerular Filtration Rate >60 (60-); Glucose, Blood 96 mg/dL (70-99); Sodium, Blood 139 mmol/L (136-145)
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
--- NOTE | 2020-12-05 16:00 | NUR ---
Pt refused to take seroquel orally as ordered for agitation. Assisted by 4 staff members to roll on his side, and Zyprexa was given IM as ordered by Dr. Pinzon. Girlfriend Melissa Jose here at the bedside after administration of medication. She states that the pt has said before that he is a DNR. She is quite adamant about this; however, there is no POLST or POA form on file in either our system nor at her primary care provider's office. Asked Melissa to please bring in any paperwork showing the pt's desired code status and/or medical POA designation if she can. This information was passed along also to Dr. Aviles who came afterwards to check on the pt and gather some more information. Nicotine patch orders also received from Dr. Toro as Melissa (girlfriend) states that some of the pt's agitation is also due to nicotine withdrawl.
--- NOTE | 2020-12-05 16:27 | NUR ---
Telephone report was given to Marry Epps at this time. Anticipate transfer of pt to room 344.
--- NOTE | 2020-12-05 17:30 | NUR ---
TRANSFER PT TRANSFERRED TO ROOM 344 FROM PCU BY BED. PT ALERT, AND STATING THAT HIS MEDICATIONS WEREN'T RIGHT DOWNSTAIRS. PT KNOWS HE CHANGED ROOMS. NO COMPLAINTS AT THIS TIME. WRIST RESTRAINTS AND MATEO VEST IN PLACE. NO DISTRESS AT THIS TIME. CALL LIGHT IN REACH. WILL CONTINUE TO MONITOR.
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
--- NOTE | 2020-12-05 21:23 | NUR ---
CHRISTINE STARTED TO GET VERY AGGITATED YELLING AND SCREAMING, CUSSING PULLING AGAINST RESTRAINTS, TRYING TO SLIDE AT OF IT. CAN'T MAKE OUT ALOT OF WHAT HE IS STAYING HE IS SO AGGITATED. DOES HAVE SOME HEARING PROBLEMS HE DOES NOT UNDERSTAND ALOT OF WHAT IS BEING SAID TO HIM UNLESS HE CAN READ LIPS. HE REFUSED IVF TO BE STARTED. KEPT ASKING TO BE TAKEN OUT OF THE RESTRAINTS SO HE CAN LEAVE THE HOSPITAL. HAD TO GET ASSISTANCE TO GIVE HIM A ZYPREXA SHOT TO HE WOULD CALM DOWN.
--- NOTE | 2020-12-05 23:34 | NUR ---
CHRISTINE IS FINNALLY SETTLING DOWN, STILL CONFUSED STATING I JUST TOOK SOME FOOD OUT OF THE [employer] AND TOOK IT. DID GET HIM TO TAKE A HIS SEREQUEL MIXED UP IN PUDDING. STILL INSISTING THAT HE BE UNTIED FROM THE MATEO BUT HE STILL WANTS TO LEAVE. STILL REFUSING IVF TO BE STARTED. OFFERED WATER WELL WHICH HE DRANK ALMOST ALL THE CUP. WILL CONTINUE TO MONITOR. CALL LIGHT WAS GIVEN.
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
[2020-12-06 05:57] LABS: Dilantin (Phenytoin), Total 31.6 ug/mL (10.0-20.0)
--- NOTE | 2020-12-06 17:45 | NUR ---
CHEST PAIN PT C\O CHEST PAIN AND REQUESTED NITRO. ONE NITRO GIVEN AND PT REPORTS CHEST PAIN IS GONE. VSS WNL. PT READY TO EAT. WILL CONTINUE TO MONITOR FOR CHEST PAIN. NO ACUTE DISTRESS. CALL LIGHT IN REACH.
--- NOTE | 2020-12-06 18:20 | NUR ---
SHIFT SUMMARY PT STILL HAS CONFUSION AND CAN BE AGITATED AT TIMES WHEN TALKING ABOUT HIS MEDICATIONS AND NEEDING TO MAKE SURE HIS TRAILER IS OK. PT CALMED DOWN WITHOUT MEDICATION. THIS RN HAS TRIED EXPLAINING REASONING FOR HOSPITAL STAY AND NOT RECEIVING HIS REGULAR MEDICATION BUT PT DOES NOT UNDERSTAND AND KEEPS TALKING ABOUT THE MEDICATIONS OVER THE RN SPEAKING. PT HAD A BED BATH AND WAS COOPERATIVE. PT HAS BEEN COOPERATIVE AND PLEASANT THIS EVENING. IVF INFUSING WITHOUT DIFFICULTY. VEST IN PLACED DUE TO CONFUSION AND HIGH FALL RISK WITH PT TRYING TO GET OUT OF BED. PT HAD AN EPISODE OF CHEST PAIN THAT WAS RELEIVED WITH ONE NITRO. NO ACUTE DISTRESS OR CHANGES AT THIS TIME. CALL LIGHT IN REACH. WILL CONTINUE TO MONITOR AND REPORT TO ONCOMING RN. BED ALARM ON FOR SAFETY.
--- NOTE | 2020-12-07 04:08 | NUR ---
SUMMARY PT REMAINS CONFUSED. PT CONTINUES TO REQUEST HIS SEIZURE MEDS. PT DOES NOT COMPREHEND THAT HE OD ON HIS MEDS. PT HAD NO C/O OF CX OR SOB. PT ACTUALLY SLEPT SOUNDLY FOR SEVERAL. HOURS. PT IS VERY HARD OF HEARING AND MAKES COMMUNICATION DIFFICULT AT TIMES. PT CURRENTLY AWAKE WATCHING TV AND IN NO DISTRESS. CALL LIGHT IN REACH AND BED ALARM ON.
[2020-12-07 07:24] LABS: Hematocrit 44.3 % (37.0-53.0); Hemoglobin 14.9 g/dL (13.5-17.5); Mean Corpuscular HGB 30.7 pg (26.0-34.0); Mean Corpuscular HGB Conc 33.6 g/dL (31.5-36.5); Mean Corpuscular Volume 91 fL (80-100); Platelet Count 185 K/mm3 (150-400); RDW Coefficient Variation 12.4 % (11.7-14.2); RDW Standard Deviation 41.1 fL (35.1-46.3); Red Blood Cell Count 4.86 M/mm3 (4.30-5.90); White Blood Cell Count 7.55 K/mm3 (4.00-11.30)
[2020-12-07 07:57] LABS: Alanine Aminotransfer (ALT/SGP 132 U/L (12-78); Albumin/Globulin Ratio 0.7 (0.8-1.8); Alk Phos 107 U/L (50-136); Anion Gap 4 mmol/L (6-16); Aspartate Aminotrans (AST/SGOT 142 U/L (12-37); Bilirubin, Total 0.8 mg/dL (0.1-1.0); Blood Urea Nitrogen 13 mg/dL (8-24); Bun/Creatinine Ratio 18.7 (12.0-20.0); CO2, Blood 27 mmol/L (21-32); Calcium, Blood 8.4 mg/dL (8.5-10.1); Chloride, Blood 109 mmol/L (98-108); Creatinine, Blood 0.69 mg/dL (0.60-1.20); Globulin, Blood 4.1 g/dL (2.2-4.0); Glomerular Filtration Rate >60 (60-); Glucose, Blood 95 mg/dL (70-99); Sodium, Blood 140 mmol/L (136-145); Total Protein, Blood 7.1 g/dL (6.4-8.2)
--- NOTE | 2020-12-07 18:34 | NUR ---
SHIFT SUMMARY PT HAS BEEN ALERT AND ORIENTED X3 WITH SOME FORGETFULNESS/CONFUSION AT TIMES. RESTRAINTS HAVE BEEN OFF SINCE 1000. PT HAS NOT BEEN TRYING TO GET OUT OF BED AND CALLING APPROPRIATELY. PT DID HAVE AN EPISODE OF AGITATION AT LUNCH DUE TO WANTING HIS SEIZURE MEDICATIONS. THIS RN TRIED TO EXPLAIN TO PT REASON FOR NOT GETTING THEM BUT PT CONTINUED TO BE ANGRY. SEROQUEL WAS ADMINISTERED AND PT CALMED DOWN. PT LATER APOLOGIZED FOR YELLING AT STAFF AND HAS BEEN CALM AND COOPERATIVE SINCE. PT EATING AND DRINKING WELL WITH ASSISTANCE. PT HAS DIFFICULTY AT TIMES GETTING THE FOOD TO HIS MOUTH. PT HAS WEAKNESS WITH A "JERK" WHEN RAISING HIS ARMS/HANDS TO EAT. ADMINISTERED NITRO X1 FOR CHEST PAIN AND PT REPORTS THE PAIN WAS GONE RIGHT AFTER. VSS WNL. NO ACUTE CHANGES AT THIS TIME. CALL LIGHT IN REACH. BED ALARM ON FOR SAFETY. WILL CONTINUE TO MONITOR AND REPORT TO ONCOMING RN.
[2020-12-08 00:30] LABS: PCO2 Arterial 32.4 mmHg (35-45); pH Blood Arterial 7.32 (7.35-7.45)
--- NOTE | 2020-12-08 00:31 | NUR ---
0000 HRS RAPID RESPONSE WAS INITIATED. PT HAS BEEN CONFUSED AND AGITATED. PT REFUSED TO TAKE HIS PRN SEROQUEL. IM ZYPREXA WAS GIVEN TO HELP REDUCE PT ANXIETY AND AGITATION. PT HAS BEEN HALLUCINATING AND YELLING DESPITE ZYPREXA. PT YELLED FOR HELP AND SAID HE WANTED OUT OF BED. WHEN CHECKED ON PT FOUND W/ RESP RATE IN 30'S, PALE COOL AND DIOPHRETIC. PT ALSO FOUND TO HAVE WEAK THREADY RADIAL PULSES. PT HAD AUDIBLE COARSE LUNG SOUNDS. LINKER UP WAS CALLED. RAPID RESPONSE TEAM ARRIVED AND DETERMINED TO MOVE PT TO ICU.
--- NOTE | 2020-12-08 00:45 | NUR ---
Provider called after [employer] Dr. Lou called after [employer] O[employer]ATOR, pt to ICU 5. New orders recieved, see emar. Primary nurse Sarah Harper updated.
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
[2020-12-08 01:34] LABS: Bun/Creatinine Ratio 13.7 (12.0-20.0); Calcium, Blood 9.1 mg/dL (8.5-10.1); Creatinine, Blood 1.82 mg/dL (0.60-1.20); Potassium, Blood 4.7 mmol/L (3.5-5.5)
[2020-12-08 01:38] LABS: BASOPHILS ABSOLUTE AUTO 0.04 K/mm3 (0.00-0.23); BASOPHILS PERCENT AUTO 0 % (0-2); EOSINOPHILS ABSOLUTE AUTO 0.02 K/mm3 (0.00-0.68); EOSINOPHILS PERCENT AUTO 0 % (0-6); Hematocrit 48.5 % (37.0-53.0); Hemoglobin 15.8 g/dL (13.5-17.5); IMMATURE GRAN ABSOLUTE AUTO 0.18 K/mm3 (0.00-0.10); IMMATURE GRAN PERCENT AUTO 1 % (0-1); LYMPHOCYTES ABSOLUTE AUTO 1.69 K/mm3 (0.84-5.20); LYMPHOCYTES PERCENT AUTO 11 % (21-46); MONOCYTES ABSOLUTE AUTO 1.22 K/mm3 (0.16-1.47); MONOCYTES PERCENT AUTO 8 % (4-13); Mean Corpuscular HGB 30.5 pg (26.0-34.0); Mean Corpuscular HGB Conc 32.6 g/dL (31.5-36.5); Mean Corpuscular Volume 94 fL (80-100); Mean Platelet Volume 10.9 fL (9.1-12.4); NEUTROPHILS ABSOLUTE AUTO 11.97 K/mm3 (1.96-9.15); NEUTROPHILS PERCENT AUTO 79 % (41-73); NRBC ABSOLUTE 0.02 K/mm3 (0.00-0.02); NRBC Auto 0.1 /100 WBC (0.0-0.2); Platelet Count 227 K/mm3 (150-400); RDW Coefficient Variation 12.5 % (11.7-14.2); RDW Standard Deviation 43.4 fL (35.1-46.3); Red Blood Cell Count 5.18 M/mm3 (4.30-5.90); White Blood Cell Count 15.12 K/mm3 (4.00-11.30)
--- NOTE | 2020-12-08 01:40 | NUR ---
RESTRAINTS PLACED AND BIPAP APPLIED. PT IMMEDIATELY ATTEMPTS TO PULL AT BIPAP.
--- NOTE | 2020-12-08 02:10 | NUR ---
LEVOPHED STARTED AT 4MCG/MIN. DR. GOSS HERE TO SEE PT
--- NOTE | 2020-12-08 03:02 | NUR ---
BLADDER SCAN OBTAINED AND SHOWING ONLY 13CC IN BLADDER.
--- NOTE | 2020-12-08 03:25 | NUR ---
15MG ETOMIDATE @ 0324 1MG VERSED @ 0325 150 MG SUCCINYLCHOLINE @ 0325 GIVEN FOR RSI, DR. GOSS INTUBATED WITH 8.0 ETT 24 @ GUMS. OG PLACED
--- NOTE | 2020-12-08 05:39 | NUR ---
DR. GOSS ARRIVED TO PLACE CENTRAL LINE. JUST AT THE END OF THE CENTRAL LINE PLACEMENT, PT STARTED HAVING WIDE COMPLEX SINUS RYTHYM WITH HR IN THE 70'S. PT COMPLETELY MOTTLED BUT STILL HAS A PULSE. EPINEPHRINE 1 AMP GIVEN, NO BP READING ABLE TO BE OBTAIN MANUALLY. SEE CODE SHEETS. 0540 LEVOPHED AT 30MCG/MIN, NEOSYNEPHRINE @ 300MCG/MIN, VASOPRESSIN @ 0.04UNITS/MIN. PT MOTTLED WITH SBP 90/DOPPLER. VENT SETTING AC 16, TV 500, FIO2 100% PEEP 10.
--- NOTE | 2020-12-08 08:10 | NUR ---
PT : REPORT RECEIVED FROM SANDRA Scales RN. ASSUMED CARE OF THIS PT AT APPROX 0700. DURING BEDSIDE REPORTING, THE PT's FAMILY STS THEY ARE "READY TO SAY GOODBYE" & REQUEST THAT ALL LIFE-SUSTAINING MEASURES BE DISCONTINUED. VASOPRESSORS STOPPED AT 0657. CLARENCE Scales, RT NOTIFIED OF COMFORT MEASURE ORDERS & FAMILY's DESIRE TO HAVE PT EXTUBATED. DR GOSS HAS OKAY'd COMFORT CARE FOR THIS PT PER FAMILY REQUEST & SANDRA Scales RN, HAS PLACED NECESSARY ORDERS. THE PT HAS AT 0704. SUSU Napoles, SPIRITUAL CARE LEGAL DOCUMENT SPECIALIST, IS AT BEDSIDE SHORTLY AFTER PT's EXPIRATION & HAS BEEN ABLE TO PROVIDE SOME EMOTIONAL SUPPORT FOR THE FAMILY AT BEDSIDE. THE FAMILY WOULD LIKE TO USE [facility] THEIR HOME & THEY ARE ALSO REQUESTING THAT THE PT HAVE AN AUTOPSY COMPLETED TO DETMINE CAUSE OF THE PT "WAS DOING SO WELL YESTERDAY." SEBASTIAN Napoles, REPEATER OPERATOR, HAS MADE NEAL Marsh, NURSING BUSINESS CONTINUITY MANAGER AWARE OF THESE CIRCUMSTANCES & THE [facility] REHABILITATION PSYCHOLOGIST HAS BEEN CONTACTED. BRIAN, EYE & TISSUE BANK REP, HAS CALLED THIS RN REGARDING THE PT's POTENTIAL TO DONATE. THIS RN HAS UPDATED HIM ON THE HOME CHOICE & NOTIFIED HIM THAT THE REHABILITATION PSYCHOLOGIST HAS YET TO RELEASE THIS PT's BODY. HE REQUESTS A CALL BACK AT WHEN DECISIONS HAVE BEEN MADE, PRIOR TO PT's BODY BEING RELEASED TO [facility].
--- NOTE | 2020-12-08 08:16 | NUR ---
After being contacted by the the on-call adjunct faculty mathematics department requesting that I respond to his call-back for a in ICU-5, I visit patient's family. Patient's mother, Karoline and [id number], Sarah, are bedside and grieving appropriately. After conducting a brief life review and exploring patient's spiritual beliefs, I provide prayer. Shortly after the prayer, patient's girlfriend, Shweta, arrives and creates an immediate tension. I provide a comforting hug to Shweta. Karoline and Sarah begin to leave and there are some unpleasant words exchanged between Sarah and Shweta. I continue to provide grief support to Shweta. Sarah comes back into the rm to bead picker patient's belongings and more abrasive words and name calling unsued. I then provide a calming presence and Shweta immediately moves back into her grief. After hugging the body several more times she exits the ICU area. I walk her to the doors that lead out to the parking lot.
--- NOTE | 2020-12-08 09:29 | NUR ---
UPDATE: SEBASTIAN Napoles, NODE JS DEVELOPER, HAS SPOKEN W/ THE [facility]D CONSULTING ARCHITECT & FOUND THAT THE PT's FAMILY WILL BE RESPONSIBLE FOR COSTS OF AUTOPSY. HE REQUESTS THAT THE PT's MOTHER, VALORIE, CONTACT [facility] IN [place] & SPEAK TO JANIE. JANIE WILL BE ABLE TO PROVIDE THEM W/ MORE INFORMATION REGARDING THE TOPIC OF PT's AUTOPSY. THIS RN HAS BEEN NOTIFIED THAT ISMAEL CLEARY WOULD BE THE PROVIDER PERFORMING THE PT's AUTOPSY IN [place], [place]. PHONE NUMBER HAS BEEN PROVIDED & THE COST OF THIS SERVICE WOULD BE $2000, NOT INCLUDING THE COST OF TRANSPORTING THE PT's BODY TO [place]. AN EMAIL FOR ISMAEL WAS ALSO PROVIDED, [email or web address]. THIS RN WILL CALL PT's MOTHER, VALORIE & PROVIDE HER W/ THIS INFORMATION WELL.
== END 2020-12-08 07:04 | DRG 917 ==
LOC: ER 22:08 → ICUE 12-02 01:08 → PCU 12-02 01:08 → ICUW 12-02 01:08 → ICUE 12-02 01:19 → PCU 12-03 16:09 → MEDS 12-05 16:55 → ICUE 12-08 00:11
PROVIDERS: Emergency Medicine; Family Medicine; Internal Medicine; Student in an Organized Health Care Education/Training Program; ADMIT Family Medicine
PROC: 5A09357 Assistance with Respiratory Ventilation, Less than 24 Consecutive Hours, Continuous Positive Airway Pressure (ICD-10-PCS; principal; 2020-12-08)
PROC: 0BH17EZ Insertion of Endotracheal Airway into Trachea, Via Natural or Artificial Opening (ICD-10-PCS; 2020-12-08)
PROC: 5A1935Z Respiratory Ventilation, Less than 24 Consecutive Hours (ICD-10-PCS; 2020-12-08)
PROC: 05HM33Z Insertion of Infusion Device into Right Internal Jugular Vein, Percutaneous Approach (ICD-10-PCS; 2020-12-08)
PROC: 3E033XZ Introduction of Vasopressor into Peripheral Vein, Percutaneous Approach (ICD-10-PCS; 2020-12-08)
DX: T42.0X2A Poisoning by hydantoin derivatives, intentional self-harm, initial encounter (principal); G92 Toxic encephalopathy; R65.21 Severe sepsis with septic shock; A41.9 Sepsis, unspecified organism; N17.9 Acute kidney failure, unspecified; I47.2 Ventricular tachycardia; F17.210 Nicotine dependence, cigarettes, uncomplicated; Z94.5 Skin transplant status; G40.909 Epilepsy, unspecified, not intractable, without status epilepticus; Y92.9 Unspecified place or not applicable; I10 Essential (primary) hypertension; Z66 Do not resuscitate; Z78.1 Physical restraint status
CPT/HCPCS: 31500; 31720; 36415; 36600; 51703; 70450; 71045; 72125; 80048; 80053; 80185; 81001; 82040; 82140; 82803; 82947; 83880; 84484; 85025; 85027; 87086; 93005; 93010; 94002; 94640; 94660; 94760; 94762; 96361; 96374; 97110; 97162; 97166; 97530; 97535; 99285-25; A9270; C1751; G0480; J0282; J0330; J1630; J1940; J2060; J2250; J3370; J7030; J7040; J7050; J7060